=== PATIENT | male | born 1990 | race Caucasian/White ===

== ENCOUNTER 2017-02-27 20:18 | Emergency (ER) | payer MEDICAID, OTHER ==
[~2017-02-27] VITALS: Ht 177.8 cm; Wt 114.5 kg
[~2017-02-27 20:18] MED LIST: Z.0.NO CURRENT MEDS
[2017-02-27 20:28] VITALS: BP 141/78; PULSE 88; RESP 16; TEMP 99.7; O2SAT 99
[2017-02-27] MEDS ORDERED: LIDOCAINE HCL 1% 50 ML VIAL INFIL ONE (20:45)
[2017-02-27] MEDS ORDERED: BACT800T5 PO (20:53)
--- NOTE | 2017-02-27 20:53 | PD ---
HPI Chief Complaint: Skin Problem Time Seen by Provider: 20:38 Travel History International Travel<30 days: No Contact w/Intl Traveler<30days: No Traveled to known affect area: No History of Present Illness HPI 26 year-old male presents to the emergency room for evaluation of an abscess to his left axilla that he first noticed 2 days ago. States it started off as a small pimple that he squeezed and got a lot of drainage from but it continued to grow in size and pain. He has been applying hydrogen peroxide to every night. 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 No chronic medical conditions or daily medications. Denies fever, chills, nausea, and vomiting. PFSH Social History Alcohol Use: No Tobacco Use: No Substance Use: No Allergies-Medications (Allergen,Severity, Reaction): Coded Allergies: amoxicillin (Verified Allergy, Severe, CHILDHOOD, 02/27/17) Reported Meds & Prescriptions Reported Meds & Active Scripts Active Bactrim DS (Sulfamethoxazole-Trimethoprim) 800-160 Mg Tab 1 Tab PO BID Reported No Current Meds (Miscellaneous Medication) Misc Review of Systems Except as stated in HPI: all other systems reviewed are Neg Physical Exam Narrative GENERAL: Well-nourished, well-developed male in no acute distress. Afebrile. Ambulatory. SKIN: Focused skin assessment warm/dry. There is an indurated area in the left axilla which measures about 3 cm in diameter. It is fluctuant with pointing but no drainage. There is a zone of inflammation around it but no lymphangitis. HEAD: Normocephalic. EYES: No scleral icterus. No injection or drainage. NECK: Supple, trachea midline. No JVD or lymphadenopathy. CARDIOVASCULAR: Regular rate and rhythm without murmurs, gallops, or rubs. RESPIRATORY: Breath sounds equal bilaterally. No accessory muscle use. PSYCHIATRIC: No delusional thought processes. No hallucinations. Data Data Last Documented VS Vital Signs Date Time Temp Pulse Resp B/P (MAP) Pulse Ox O2 Delivery O2 Flow Rate FiO2 02/27/17 20:28 99.7 88 16 141/78 (99) 99 Orders Orders Lidocaine 1% Inj (50 Ml) (Xylocaine 1% I (02/27/17 20:45) MDM Medical Decision Making Medical Screen Exam Complete: Yes Emergency Medical Condition: Yes Medical Record Reviewed: Yes Differential Diagnosis Abscess, folliculitis, cellulitis Narrative Course 26-year-old male presents to the emergency room for evaluation of an abscess to his left axilla that started 2 days ago. Patient is afebrile well-appearing in the emergency room. Vital signs stable. Resting comfortably in bed. Physical exam reveals a decrease in area of induration with pointing but without spontaneous drainage. There is surrounding erythema but no lymphangitis. Abscess was drained, see procedure for details. Patient discharged with prescription for Bactrim and told to follow up with her primary care physician or return for worsening symptoms. He understands and agrees to plan. Procedures Procedure Narrative INCISION AND DRAINAGE OF ABSCESS: The area was prepped and was sterilely draped. A subcutaneous wheal of 1% lidocaine with a total number 3 mL was used to anesthetize the area properly. A number 11 scalpel was used to make a1 cm incision across the area of the abscess. The abscess was drained, complex loculations were broken down, and irrigated with normal saline. Cultures were obtained. Quarter inch iodoform packing was placed in the wound. Sterile dressing applied. Patient advised to have packing removed in two days. Diagnosis Primary Impression: Abscess of left axilla Additional Instructions: Rest and drink plenty of fluids. Take Bactrim as directed, until gone. Follow up with a primary care physician. Return to emergency room for worsening symptoms, as discussed. Scripts Sulfamethoxazole-Trimethoprim (Bactrim DS) 800-160 Mg Tab 1 TAB PO BID for Infection, #20 TAB 0 Refills Prov: Ernestina Solitario DO 02/27/17 Disposition: 01 DISCHARGE HOME Condition: Stable Ginger May Feb 27, 2017 20:53
[2017-02-27 21:12] VITALS: BP 134/66; PULSE 70; RESP 14; TEMP 99.8; O2SAT 97
== END 2017-02-27 21:20 | disposition home or self-care (01) ==
LOC: PHEFT 20:18
DX: L02.412 Cutaneous abscess of left axilla (principal); B95.62 Methicillin resistant Staphylococcus aureus infection as the cause of diseases classified elsewhere
CPT/HCPCS: 10061; 86403; 87070; 87186; 87205

== ENCOUNTER 2017-10-24 20:20 | Emergency (ER) | payer MEDICAID ==
[~2017-10-24 20:20] MED LIST changes: +BACT800T5 PO
[2017-10-24 20:27] VITALS: BP 161/85; PULSE 71; RESP 16; TEMP 99.5; O2SAT 97
[2017-10-24] MEDS ORDERED: CLIN300C5 PO (20:41)
[2017-10-24] MEDS ORDERED: MAGICPED SWISH-SPIT (20:41)
[2017-10-24] MEDS ORDERED: CLINDAMYCIN 150 MG CAP PO ONE (20:45)
[2017-10-24] MEDS ORDERED: ACETAMINOPHEN/HYDROcodone 325 MG/5 MG TAB PO ONE (20:45)
--- NOTE | 2017-10-24 20:48 | PD ---
HPI Chief Complaint: Oral / Dental Pain or Problem Time Seen by Provider: 20:35 Travel History International Travel<30 days: No Contact w/Intl Traveler<30days: No Traveled to known affect area: No History of Present Illness HPI 27-year-old male presents emergency department complaining of left lower second molar tooth pain intermittently for approximately 1 month. Patient states that he is usually able to resolve the pain on his own and spontaneously however, today the pain is been persistent. He was advised by his dentist to go to the emergency department if his pain worsen or persists. Says he has an appointment with his dentist on Friday. Patient says the pain is localized to the tooth. Denies unusual taste or radiation of pain. Denies jaw or neck pain. Denies fevers or chills. PFSH Past Medical History Medical History: Denies Significant Hx Diminished Hearing: No Influenza Vaccination: No ?: Not Past Surgical History Surgical History: No Previous Surgery Social History Alcohol Use: No Tobacco Use: No Substance Use: No Allergies-Medications (Allergen,Severity, Reaction): Coded Allergies: amoxicillin (Verified Allergy, Severe, CHILDHOOD, 10/24/17) Reported Meds & Prescriptions Reported Meds & Active Scripts Active Magic Mouthwash Pediatric/Adult Liq (Lidocaine/Diphenhydr/Alum/Mg/Simeth) 60 Ml Susp 5 Ml SWISH-SPIT ACHS Each 5mL contains: Diphenydramine 4.5mg, Viscous Lidocaine 2% 10mg, Maalox Advanced Regular Strength 2.7ml Clindamycin (Clindamycin HCl) 300 Mg Cap 300 Mg PO TID 7 Days Review of Systems Except as stated in HPI: all other systems reviewed are Neg Physical Exam Narrative GENERAL: Well-nourished, well-developed patient. SKIN: Focused skin assessment warm/dry. HEAD: Normocephalic. EYES: No scleral icterus. No injection or drainage. NECK: Supple, trachea midline. No JVD or lymphadenopathy. THROAT: No pharyngeal injection, exudates, or tonsillar hypertrophy. Airway is patent. Left lower second molar-erosions. Tenderness palpation to the surrounding gingiva without fluctuance. No expression of fluid or exudate. No tenderness palpation of the jawline CARDIOVASCULAR: Regular rate and rhythm without murmurs, gallops, or rubs. RESPIRATORY: Breath sounds equal bilaterally. No accessory muscle use. MUSCULOSKELETAL: No cyanosis, or edema. BACK: Nontender without obvious deformity. No CVA tenderness. Data Data Last Documented VS Vital Signs Date Time Temp Pulse Resp B/P (MAP) Pulse Ox O2 Delivery O2 Flow Rate FiO2 10/24/17 20:27 99.5 71 16 161/85 (110) 97 Orders Orders Clindamycin (Cleocin) (10/24/17 20:45) Acetamin-Hydrocod 325-5 Mg ([place] 5-325 (10/24/17 20:45) MDM Medical Decision Making Medical Screen Exam Complete: Yes Emergency Medical Condition: Yes Differential Diagnosis Dental abscess, dental infection, pulpitis, tooth fracture, poor dentition Narrative Course 27-year-old male presents emergency department complaining of left lower second molar tooth pain intermittently for approximately 1 month. Patient states that he is usually able to resolve the pain on his own and spontaneously however, today the pain is been persistent. He was advised by his dentist to go to the emergency department if his pain worsen or persists. Says he has an appointment with his dentist on Friday. Patient says the pain is localized to the tooth. Denies unusual taste or radiation of pain. Denies jaw or neck pain. Denies fevers or chills. Vital signs are stable. Physical exam findings remarkable for multiple dental caries. Area of concern shows tooth erosion. Tenderness palpation of the surrounding gingiva without fluctuance. Clindamycin and hydrocodone administered emergency department. Patient will be prescribed clindamycin and Magic mouthwash for outpatient use. Advised to follow-up with the dentist as discussed. Diagnosis Primary Impression: Dental infection Referrals: Dentist Additional Instructions: Use the mouth rinse as needed for pain as prescribed. Start your next dose of clindamycin tomorrow morning. You received your first dose tonight in the emergency department. If your pain persists or worsen return to the emergency department. Scripts Wkvqnvrhvimtwbq-Cysfsmfxn-Bnf-Alum-Simeth Liq (Magic Mouthwash Pediatric/Adult Liq) 60 Ml Susp 5 ML SWISH-SPIT ACHS for Pain Management, #60 ML 0 Refills Each 5mL contains: Diphenydramine 4.5mg, Viscous Lidocaine 2% 10mg, Maalox Advanced Regular Strength 2.7ml Prov: Anish Crawford MD 10/24/17 Clindamycin (Clindamycin) 300 Mg Cap 300 MG PO TID for Infection for 7 Days, CAP 0 Refills Prov: Anish Crawford MD 10/24/17 Disposition: 01 DISCHARGE HOME Condition: Stable Naomy Moore October 24, 2017 20:48
== END 2017-10-24 21:15 | disposition home or self-care (01) ==
LOC: PHEFT 20:20
DX: K04.7 Periapical abscess without sinus (principal)
CPT/HCPCS: 99283

== ENCOUNTER 2017-11-11 20:32 | Emergency (ER) | payer MEDICAID ==
[~2017-11-11] VITALS: Ht 177.8 cm; Wt 120.6 kg
[~2017-11-11 20:32] MED LIST changes: -BACT800T5 PO; +CLIN300C5 PO; +MAGICPED SWISH-SPIT; -Z.0.NO CURRENT MEDS
[2017-11-11 20:40] VITALS: BP 132/71; PULSE 77; RESP 18; TEMP 98.4; O2SAT 98
[2017-11-11] MEDS ORDERED: BACT800T5 PO (21:51)
--- NOTE | 2017-11-11 21:53 | PD ---
HPI . Abscess Chief Complaint: Skin Problem Time Seen by Provider: 21:46 Travel History International Travel<30 days: No Contact w/Intl Traveler<30days: No Traveled to known affect area: No History of Present Illness HPI Patient presents with an abscess on his right forearm. Onset was 3 days ago. He states that it is actually markedly improved status post spontaneous drainage earlier today. He states that he comes in to us tonight because he knows that he needs an antibiotic. He rates his pain at 3/10. PFSH Past Medical History Medical History: Denies Significant Hx Diminished Hearing: No Immunizations Current: Yes Influenza Vaccination: No Social History Alcohol Use: Yes (OCC) Tobacco Use: No Substance Use: No Allergies-Medications (Allergen,Severity, Reaction): Coded Allergies: amoxicillin (Verified Allergy, Severe, CHILDHOOD, 11/11/17) Reported Meds & Prescriptions Reported Meds & Active Scripts Active Bactrim DS (Sulfamethoxazole-Trimethoprim) 800-160 Mg Tab 1 Tab PO BID Review of Systems Except as stated in HPI: all other systems reviewed are Neg Physical Exam Narrative GENERAL: Awake and alert and in no acute distress. SKIN: Warm and dry. He has an area of induration on the right, extensor surface. There is no fluctuance. There is no associated lymphangitis or lymphadenopathy. HEAD: Normocephalic/atraumatic. EYES: Pupils are equal. Extraocular movements are intact. NECK: Normal range of motion. CARDIOVASCULAR: Regular rate and rhythm. RESPIRATORY: Nonlabored respirations. MUSCULOSKELETAL: Atraumatic. NEUROLOGICAL: Nonfocal. PSYCHIATRIC: Appropriate mood and affect. Data Data Last Documented VS Vital Signs Date Time Temp Pulse Resp B/P (MAP) Pulse Ox O2 Delivery O2 Flow Rate FiO2 11/11/17 20:40 98.4 77 18 132/71 (91) 98 Orders Orders Ed Discharge Order (11/11/17 21:51) [facility] Medical Decision Making Medical Screen Exam Complete: Yes Emergency Medical Condition: Yes Differential Diagnosis My differential diagnosis closed but is not limited to abscess, cyst, lipoma Narrative Course Patient presents with an abscess on his right forearm. It has spontaneously and adequately drained. There is some residual induration, erythema and warmth. He will be discharged on Bactrim. Diagnosis Primary Impression: Abscess Patient Instructions: General Instructions, Abscess (ED) Departure Forms: Tests/Procedures Scripts Sulfamethoxazole-Trimethoprim (Bactrim DS) 800-160 Mg Tab 1 TAB PO BID for Infection, #20 TAB 0 Refills Prov: Karmen Salazar MD 11/11/17 Disposition: 01 DISCHARGE HOME Condition: Stable Karmen Salazar MD November 11, 2017 21:53
== END 2017-11-11 21:58 | disposition home or self-care (01) ==
LOC: PHED 20:32
DX: L02.413 Cutaneous abscess of right upper limb (principal); Z88.0 Allergy status to penicillin
CPT/HCPCS: 99283